=== PATIENT | female | born 1965 | race Caucasian/White ===

== ENCOUNTER 2016-11-08 20:53 | Emergency (ER) | payer MEDICARE, MEDICAID ==
--- NOTE | 2016-11-08 21:35 | ED.PDOC ---
History of Present Illness - General Chief Complaint: Lower Extremity Injury Time Seen by Provider: 11/08/16 21:34 Source: patient - History of Present Illness Initial Comments: Ms Tanvi Stevens 51 y/o female with history of 3 knee surgeries ,dm,cad,sz stated [place] the [place] step [place] done fishing she twisted her left knee and ankle landing on the ground denies back and hip pain;no head injuries.Pain on weight bearing and bending left knee and ankle. Occurred: this evening Pain - Lower Extremity: moderate: Left Knee - twisted, Left Ankle - twisted Method of Injury: fell Improving Factors: rest Worsening Factors: movement Allergies/Adverse Reactions: Allergies Diazepam [From Valium] Allergy (Intermediate, Verified 10/06/15 11:39) Flu Virus Vaccine Allergy (Intermediate, Verified 10/06/15 11:39) Levofloxacin [From Levaquin] Allergy (Intermediate, Verified 10/06/15 11:39) Penicillins Allergy (Intermediate, Verified 10/06/15 11:39) Phenobarbital Allergy (Intermediate, Verified 10/06/15 11:39) Pneumococcal Vaccines Allergy (Intermediate, Verified 10/06/15 11:39) Sulfa Antibiotics Allergy (Intermediate, Verified 10/06/15 11:39) Codeine Allergy (Verified 11/08/16 21:14) Home Medications: Ambulatory Orders Nitroglycerin [Nitrostat] 1 ea SL PRN PRN 12/30/14 Phenytoin Sodium Cap [Dilantin Cap] 400 mg PO DAILY 12/30/14 Albuterol Sulfate [Proair Hfa] 2 puff INH Q6H PRN 10/06/15 Aspirin (Buffered) 325 mg [Bufferin 325 mg] 1 ea PO QD 10/06/15 Clindamycin HCl 150 mg PO Q8HRS #15 cap 10/06/15 Estrogens, Conjugated [Premarin] 0.625 mg PO DAILY 10/06/15 Hydrochlorothiazide 25 mg PO DAILY 10/06/15 Lorazepam [Ativan] 0.5 mg PO TID PRN 10/06/15 Tramadol HCl [Ultram] 50 mg PO TID PRN 10/06/15 Review of Systems - Review of Systems Constitutional: States: no symptoms reported EENTM: States: no symptoms reported Respiratory: States: no symptoms reported Cardiology: States: no symptoms reported Gastrointestinal/Abdominal: States: no symptoms reported Genitourinary: States: no symptoms reported Musculoskeletal: States: see HPI Skin: States: no symptoms reported Neurological: States: no symptoms reported Endocrine: States: no symptoms reported Hematologic/Lymphatic: States: no symptoms reported Past Medical History (General) - Patient Medical History Hx Seizures: Yes Hx Stroke: No Hx Dementia: No Hx Asthma: Yes Hx of COPD: No Hx Cardiac Disorders: Yes - [place] Hx Congestive Heart Failure: No Hx Pacemaker: No Hx Hypertension: Yes Hx Thyroid Disease: No Hx Diabetes: Yes Hx Gastroesophageal Reflux: No Hx Renal Disease: No Hx Cancer: No Hx of HIV: No Hx Hepatitis C: No Hx MRSA: No Hx Other PMH: Yes - seizure Surgical History: angioplasty, appendectomy, cholecystectomy, other - hysterectomy, ,3 left knee surgery,left rotator cuff repair,loop recorder placement - Vaccination History Hx Tetanus, Diphtheria Vaccination: No Hx Influenza Vaccination: No Hx Pneumococcal Vaccination: No Immunizations Up to Date: Yes - Social History Hx Tobacco Use: Yes Hx Chewing Tobacco Use: No Hx Alcohol Use: No Hx Substance Use: No Hx Substance Use Treatment: No Hx Depression: No Hx Physical Abuse: No Hx Emotional Abuse: No Hx Suspected Abuse: No - Activities of Daily Living Patient Lives Alone: No - family Hospice Agency (if applicable):: None Grooming Ability: Independent Eating (Feeding) Ability: Independent Toileting Ability: Independent - Female History Patient is a Female of Child Bearing Age (10 -59 yrs old): Yes - hysterectomy Patient : No Family Medical History - Family History Mother Family History: Unknown Hx Family Stroke: Yes - dad Hx Cardiac Disease: Yes - parents;SZ-dad Hx Family Cancer: Yes - kidney-dad Hx Family;Other: gallstone Physical Exam - Physical Exam General Appearance: Alert, No apparent distress Eyes, Ears, Nose, Throat: PERRL/EOMI, normal ENT inspection, TMs normal Neck: non-tender, full range of motion, supple Cardiovascular/Respiratory: regular rate, rhythm, normal peripheral pulses, no JVD, normal breath sounds Gastrointestinal/Abdominal: non-tender, no organomegaly Back: normal inspection, no CVA tenderness, no vertebral tenderness Thigh/Hip: normal inspection, no evidence of injury Leg: normal inspection, no evidence of injury Knee: bone tenderness, limited ROM - left knee, pain - left knee, soft tissue tenderness - left knee Ankle: limited ROM - pain left, soft tissue tenderness - left ankle Neuro/Tendon: normal sensation, normal motor functions, normal tendon functions , responds to pain, no evidence tendon injury Mental Status: alert, oriented x 3 Skin: normal color, warm/dry Progress - EKG/XRAY/CT XRAY: ankle - no fracture,left ankle ? avulsion fx CT Ordered: No Departure - Departure Clinical Impression: Sprain of left knee Qualifiers: Encounter type: initial encounter Involved ligament of knee: unspecified ligament Qualifier Code: (S83.92XA) Sprain of unspecified site of left knee, initial encounter Sprain of ankle, left Qualifiers: Encounter type: initial encounter Involved ligament of ankle: other ligament Qualifier Code: (S93.492A) Sprain of other ligament of left ankle, initial encounter Time of Disposition: 22:21 Disposition: Discharge to Home or Self Care Departure Forms: ED Discharge - Pt. Copy, Patient Portal Self Enrollment Instructions: DI for Knee Sprain, How to Use an Elastic Bandage-Knee Sprain, DI for Ankle Sprain Home Medications: Ambulatory Orders Nitroglycerin [Nitrostat] 1 ea SL PRN PRN 12/30/14 Phenytoin Sodium Cap [Dilantin Cap] 400 mg PO DAILY 12/30/14 Albuterol Sulfate [Proair Hfa] 2 puff INH Q6H PRN 10/06/15 Aspirin (Buffered) 325 mg [Bufferin 325 mg] 1 ea PO QD 10/06/15 Clindamycin HCl 150 mg PO Q8HRS #15 cap 10/06/15 Estrogens, Conjugated [Premarin] 0.625 mg PO DAILY 10/06/15 Hydrochlorothiazide 25 mg PO DAILY 10/06/15 Lorazepam [Ativan] 0.5 mg PO TID PRN 10/06/15 Tramadol HCl [Ultram] 50 mg PO TID PRN 10/06/15 Additional Instructions: Ice pack to affected area 20 minutes 3 x a day during waking hours until better; Follow up with primary md in one week call for appointment if needed;Continue with home meds
[2016-11-08] MEDS ORDERED: KETOROLAC TROMETHAMINE INJ 30 MG/ML VIAL IM ONE (21:58)
[2016-11-08] MEDS ORDERED: ORPHENADRINE CITRATE 30 MG/ML AMP IM ONE (21:59)
--- NOTE | 2016-11-08 22:12 | RAD ---
EXAM DESCRIPTION: Ankle,Left 3 Views (accession [id number]), Foot,Left 3 Views (accession [id number]), Knee,Left 2 or More Views (accession [id number]) CLINICAL HISTORY: 51 years, Female, fall COMPARISON: LEFT knee radiographs dated 09/20/2012. FINDINGS: Three views of the LEFT foot, three separate views of the LEFT ankle and three separate views of the LEFT knee were performed. LEFT knee: A total knee arthroplasty in stable position. The joint spaces are well-preserved. The bones are osteopenic. No fracture is identified. Redemonstrated attenuating material along the posterior aspect of the LEFT knee, unchanged. No definite knee effusion. LEFT ankle and LEFT foot: Soft tissue swelling involves the lateral aspect of the ankle. No radiopaque foreign body. The bones are osteopenic. A tiny ossification versus calcification lies just distal to the tip of the LEFT lateral malleolus only seen on the mortise view/frontal radiograph. No fracture line or donor site is identified. Bony alignment is maintained. In particular, the ankle mortise is congruent and the talar dome is intact. IMPRESSION: LEFT lateral ankle sprain. A tiny avulsion fracture from the lateral malleolus cannot be excluded but this could also be a chronic finding or calcification. No LEFT foot acute bony injury. No LEFT knee acute bony injury. Stable LEFT knee arthroplasty. Electronically signed by: Any Marques MD 11/08/2016 10:12 PM CDT
--- NOTE | 2016-11-08 22:12 | RAD ---
EXAM DESCRIPTION: Ankle,Left 3 Views (accession [id number]), Foot,Left 3 Views (accession [id number]), Knee,Left 2 or More Views (accession [id number]) CLINICAL HISTORY: 51 years, Female, fall COMPARISON: LEFT knee radiographs dated 09/20/2012. FINDINGS: Three views of the LEFT foot, three separate views of the LEFT ankle and three separate views of the LEFT knee were performed. LEFT knee: A total knee arthroplasty in stable position. The joint spaces are well-preserved. The bones are osteopenic. No fracture is identified. Redemonstrated attenuating material along the posterior aspect of the LEFT knee, unchanged. No definite knee effusion. LEFT ankle and LEFT foot: Soft tissue swelling involves the lateral aspect of the ankle. No radiopaque foreign body. The bones are osteopenic. A tiny ossification versus calcification lies just distal to the tip of the LEFT lateral malleolus only seen on the mortise view/frontal radiograph. No fracture line or donor site is identified. Bony alignment is maintained. In particular, the ankle mortise is congruent and the talar dome is intact. IMPRESSION: LEFT lateral ankle sprain. A tiny avulsion fracture from the lateral malleolus cannot be excluded but this could also be a chronic finding or calcification. No LEFT foot acute bony injury. No LEFT knee acute bony injury. Stable LEFT knee arthroplasty. Electronically signed by: Any Marques MD 11/08/2016 10:12 PM CDT
--- NOTE | 2016-11-08 22:13 | RAD ---
EXAM DESCRIPTION: Ankle,Left 3 Views (accession [id number]), Foot,Left 3 Views (accession [id number]), Knee,Left 2 or More Views (accession [id number]) CLINICAL HISTORY: 51 years, Female, fall COMPARISON: LEFT knee radiographs dated 09/20/2012. FINDINGS: Three views of the LEFT foot, three separate views of the LEFT ankle and three separate views of the LEFT knee were performed. LEFT knee: A total knee arthroplasty in stable position. The joint spaces are well-preserved. The bones are osteopenic. No fracture is identified. Redemonstrated attenuating material along the posterior aspect of the LEFT knee, unchanged. No definite knee effusion. LEFT ankle and LEFT foot: Soft tissue swelling involves the lateral aspect of the ankle. No radiopaque foreign body. The bones are osteopenic. A tiny ossification versus calcification lies just distal to the tip of the LEFT lateral malleolus only seen on the mortise view/frontal radiograph. No fracture line or donor site is identified. Bony alignment is maintained. In particular, the ankle mortise is congruent and the talar dome is intact. IMPRESSION: LEFT lateral ankle sprain. A tiny avulsion fracture from the lateral malleolus cannot be excluded but this could also be a chronic finding or calcification. No LEFT foot acute bony injury. No LEFT knee acute bony injury. Stable LEFT knee arthroplasty. Electronically signed by: Any Marques MD 11/08/2016 10:12 PM CDT
[2016-11-08 22:40] VITALS: BP 125/80; TEMP 97.2; O2SAT 98
== END 2016-11-08 22:40 | disposition home or self-care (01) ==
LOC: ER 20:53
DX: S83.92XA Sprain of unspecified site of left knee, initial encounter (principal); S93.492A Sprain of other ligament of left ankle, initial encounter; E11.9 Type 2 diabetes mellitus without complications; I25.10 Atherosclerotic heart disease of native coronary artery without angina pectoris; I25.2 Old myocardial infarction; J45.909 Unspecified asthma, uncomplicated; Z87.891 Personal history of nicotine dependence; Z98.61 Coronary angioplasty status; Z88.0 Allergy status to penicillin; Z88.2 Allergy status to sulfonamides; Z88.6 Allergy status to analgesic agent; Z88.5 Allergy status to narcotic agent; Z79.82 Long term (current) use of aspirin; Z79.899 Other long term (current) drug therapy; Z88.7 Allergy status to serum and vaccine; X50.1XXA Overexertion from prolonged static or awkward postures, initial encounter; Y92.89 Other specified places as the place of occurrence of the external cause
CPT/HCPCS: 73560; 73610; 73630; J1885; J2360

== ENCOUNTER → 2017-01-01 | Outpatient (CLI) | payer MEDICARE, MEDICAID ==
--- NOTE | 2017-01-03 13:29 | RAD ---
EXAM DESCRIPTION: Knee,Right Complete CLINICAL HISTORY: 51 years,Female,PAIN IN RIGHT KNEE COMPARISON: None FINDINGS: The right knee demonstrates no fractures, dislocations, or other acute bony abnormalities. The joint spaces minimal loss in the lateral facet of the patellofemoral compartment. The soft tissues are unremarkable. No joint effusion. IMPRESSION: Mild right patellofemoral osteoarthritic changes Electronically signed by: Bc Canales MD 01/03/2017 1:30 PM CDT
--- NOTE | 2017-01-03 13:30 | RAD ---
EXAM DESCRIPTION: Pelvis CLINICAL HISTORY: 51 years, Female, PAIN IN RIGHT HIP COMPARISON: None. FINDINGS: Post demonstrates no fractures or other acute abnormalities. Joint spaces appear unremarkable. IMPRESSION: Unremarkable pelvis Electronically signed by: Bc Canales MD 01/03/2017 1:31 PM CDT
== END | disposition home or self-care (01) ==
LOC: RAD 07:59
PROVIDERS: ATTEND Orthopaedic Surgery
DX: M25.561 Pain in right knee (principal); M25.551 Pain in right hip

== ENCOUNTER → 2017-09-10 | Outpatient (CLI) | payer MEDICARE, MEDICAID ==
--- NOTE | 2017-09-12 11:35 | RAD ---
Frontal, lateral, and oblique views of the left hand. Indication:PAIN Comparison: None. Impression: No acute fracture, malalignment, advanced joint space narrowing, osseous erosions, or periarticular osteopenia identified. Fixed flexion of the fourth DIP joint noted. If there is persistent anatomic snuffbox tenderness, repeat wrist imaging to include a scaphoid view is recommended in one week to evaluate for occult scaphoid fracture. Soft tissues are intact without radiopaque foreign body. Electronically signed by: Dominic Jain MD 09/12/2017 11:34 AM [facility]
== END ==
LOC: RAD 08:08
PROVIDERS: ATTEND Orthopaedic Surgery
DX: M79.642 Pain in left hand (principal)

== ENCOUNTER → 2018-05-14 | Outpatient (CLI) | payer MEDICARE, MEDICAID ==
--- NOTE | 2018-05-14 11:19 | RAD ---
EXAM DESCRIPTION: Hand,Left 3 Views CLINICAL HISTORY: PAIN IN LEFT HAND COMPARISON: Radiographs of the left hand dated 09/10/2017. TECHNIQUE: AP, LATERAL, AND OBLIQUE FINDINGS: The visualized bones appear well mineralized. No acute fracture or dislocation. The soft tissues appear grossly unremarkable. IMPRESSION: No gross abnormality is noted in the left hand. Electronically signed by: Kelly Espinosa MD 05/14/2018 11:17 AM CDT
--- NOTE | 2018-05-14 11:19 | RAD ---
EXAM DESCRIPTION: Wrist,Right 3 Views CLINICAL HISTORY: 53 years Female, PAIN IN RIGHT WRIST COMPARISON: None available. FINDINGS: The visualized bones are well-mineralized.No acute fracture or dislocation. The soft tissues appear grossly unremarkable. IMPRESSION: No gross abnormality is noted in the right wrist. Electronically signed by: Kelly Espinosa MD 05/14/2018 11:18 AM CDT
== END ==
LOC: RAD 07:20
PROVIDERS: ATTEND Orthopaedic Surgery
DX: M25.531 Pain in right wrist (principal); M79.642 Pain in left hand; M79.645 Pain in left finger(s)

== ENCOUNTER 2018-07-17 15:50 | Emergency (ER) | payer MEDICARE, MEDICAID ==
[2018-07-17 16:15] VITALS: TEMP 97.5
[2018-07-17] MEDS ORDERED: ONDANSETRON ODT 8 MG TAB SL ONE (16:34)
[2018-07-17] MEDS ORDERED: SUCRALFATE 1 GM/10 ML 1 GM UD PO ONE (17:04)
--- NOTE | 2018-07-17 17:06 | ED.PDOC ---
History of Present Illness - General Chief Complaint: Neuro Symptoms/Deficits Stated Complaint: Post ictal after grand mal seizure Time Seen by Provider: 07/17/18 15:53 Source: patient Exam Limitations: no limitations - History of Present Illness Initial Comments: the patient is a 53-year-old female presenting to the emergency room secondary to having had a grand mal seizure at home. The patient has been having some gastritis issues over the last 3 or 4 days along with symptoms of an upper respiratory tract infection and has had difficulty keeping her seizure medications down. no abdominal pain. She arrives in a postictal state. Postictal state resolved over the ensuing hour. Additional stressors are that the patient just lost 2 family members today both of which relatively close to each other. Severity: moderate Improving Factors: nothing Worsening Factors: nothing Associated Symptoms: malaise, nausea/vomiting Allergies/Adverse Reactions: Allergies Diazepam [From Valium] Allergy (Intermediate, Verified 07/17/18 18:47) Other "stops her heart" Flu Virus Vaccine Allergy (Intermediate, Verified 10/06/15 11:39) Levofloxacin [From Levaquin] Allergy (Intermediate, Verified 07/17/18 18:47) Rash Penicillins Allergy (Intermediate, Verified 10/06/15 11:39) Phenobarbital Allergy (Intermediate, Verified 07/17/18 18:47) Other "stops her heart" Pneumococcal Vaccines Allergy (Intermediate, Verified 10/06/15 11:39) Sulfa Antibiotics Allergy (Intermediate, Verified 07/17/18 18:47) Rash Beclomethasone [From Qvar] Allergy (Verified 07/17/18 18:47) Rash Codeine Allergy (Verified 07/17/18 18:47) Rash Venlafaxine [From Effexor] Adverse Reaction (Verified 07/17/18 18:47) Nausea Home Medications: Ambulatory Orders Nitroglycerin [Nitrostat] 1 ea SL PRN PRN 12/30/14 Phenytoin Sodium Cap Extended [Dilantin Cap] 200 mg PO BID 12/30/14 Albuterol Sulfate [Proair Hfa] 2 puff INH Q6H PRN 10/06/15 Aspirin (Buffered) 325 mg [Bufferin 325 mg] 1 ea PO QD 10/06/15 Estrogens, Conjugated [Premarin] 0.625 mg PO DAILY 10/06/15 Hydrochlorothiazide 25 mg PO DAILY 10/06/15 Lorazepam [Ativan] 0.5 mg PO TID PRN 10/06/15 Tramadol HCl [Ultram] 50 mg PO TID PRN 10/06/15 Famotidine [Pepcid Tab] 20 mg PO BID #60 tab 07/17/18 Furosemide 20 mg PO DAILY 07/17/18 Ondansetron [Zofran Odt] 4 mg PO Q4H PRN #10 tab 07/17/18 Sucralfate Tab [Carafate Tab] 1 gm PO QID #30 tab 07/17/18 Review of Systems - Review of Systems Constitutional: States: malaise EENTM: States: no symptoms reported Respiratory: States: no symptoms reported Cardiology: States: no symptoms reported Gastrointestinal/Abdominal: States: nausea, vomiting Genitourinary: States: no symptoms reported Musculoskeletal: States: no symptoms reported Skin: States: no symptoms reported Neurological: States: no symptoms reported Endocrine: States: no symptoms reported All other Systems: No Change from Baseline Past Medical History (General) - Patient Medical History Hx Seizures: Yes Hx Stroke: No Hx Dementia: No Hx Asthma: Yes Hx of COPD: No Hx Cardiac Disorders: Yes - [place] Hx Congestive Heart Failure: No Hx Pacemaker: No Hx Hypertension: Yes Hx Thyroid Disease: No Hx Diabetes: No Hx Gastroesophageal Reflux: No Hx Renal Disease: No Hx Cancer: No Hx of HIV: No Hx Hepatitis C: No Hx MRSA: No - Vaccination History Hx Tetanus, Diphtheria Vaccination: No Hx Influenza Vaccination: - unknown Hx Pneumococcal Vaccination: - unknown - Social History Hx Tobacco Use: Yes Hx Chewing Tobacco Use: No Hx Alcohol Use: No Hx Substance Use: No Hx Substance Use Treatment: No Hx Depression: No Hx Physical Abuse: No Hx Emotional Abuse: No Hx Suspected Abuse: No - Female History Patient : No Family Medical History - Family History Mother Family History: Unknown Hx Family Stroke: Yes - dad Hx Cardiac Disease: Yes - parents;SZ-dad Hx Family Cancer: Yes - kidney-dad Hx Family;Other: gallstone Physical Exam - Physical Exam General Appearance: Other - after the postictal state resolved, the patient is alert and oriented, pleasant and cooperative. Eye Exam: bilateral normal Ears, Nose, Throat: hearing grossly normal, normal ENT inspection, normal pharynx - poor dentition Neck: full range of motion, supple Respiratory: lungs clear, normal breath sounds, no respiratory distress, no accessory muscle use Cardiovascular/Chest: normal peripheral pulses, regular rate, rhythm, no edema Peripheral Pulses: radial,right: 2+, radial,left: 2+ Gastrointestinal/Abdominal: non tender, soft, other - mild epigastric discomfort palpation. Rectal Exam: deferred Back Exam: no CVA tenderness, no vertebral tenderness Extremity: normal range of motion, non-tender, normal inspection, no pedal edema, normal capillary refill Neurologic: other - after the postictal state resolves the patient is alert and oriented 4. No new sensory or motor deficits. No new neurological changes otherwise. Skin Exam: normal color Comments: Vital Signs - 24 hr 07/17/18 15:50 Temperature 97.5 F L Pulse Rate [ 91 H Left Radial] Respiratory 14 Rate Blood Pressure 124/89 [Right Arm] O2 Sat by Pulse 96 Oximetry Progress - Progress Progress: 07/17/18 23:32 the patient's a 53-year-old female presenting to the emergency room secondary to a grand mal seizure due to having difficulties holding down her Dilantin over the past few days. The patient appears to be suffering from a viral syndrome including gastroenteritis and a very mild bronchitis. The patient is a very difficult IV access but does appear to be fairly well hydrated. The patient received loading doses of IM Dilantin and was eventually able to hold down her oral Dilantin after nausea medications and stomach medications were given here. The patient will be written for Carafate for 3 times a day use for the next week. She needs to try and not take her Dilantin at the same time she takes the Carafate. She will additionally be written for Zofran for as needed use to control any nausea and vomiting to allow herself to remain hydrated and hold down her seizure medications. Additionally she does need to take Pepcid twice daily for the next month. She needs to follow up with her primary care doctor early next week. ER warnings were given. Encourage oral hydration. [place] diet is also encouraged. - Results/Orders Results/Orders: Laboratory Tests 07/17/18 07/17/18 16:24 16:24 WBC 9.3 RBC 4.84 Hgb 14.8 Hct 43.6 MCV 90.1 MCH 30.6 MCHC 34.0 RDW 13.7 Plt Count 211 MPV 8.3 Absolute Neuts (auto) 5.10 Absolute Lymphs (auto) 3.20 Absolute Monos (auto) 0.70 Absolute Eos (auto) 0.20 Absolute Basos (auto) 0.10 Neutrophils % 55.1 Lymphocytes % 34.3 Monocytes % 7.5 Eosinophils % 1.9 Basophils % 1.2 Sodium 137 Potassium 3.7 Chloride 107 Carbon Dioxide 24 Anion Gap 9.7 L BUN 16 Creatinine 0.62 BUN/Creatinine Ratio 25.8 H Random Glucose 98 Serum Osmolality 275.0 Calcium 9.5 Magnesium 2.0 Total Bilirubin 0.3 AST 21 ALT 20 Alkaline Phosphatase 122 H Creatine Kinase 51 CK-MB (CK-2) 1.5 CK-MB (CK-2) % Not Reportable Troponin I < 0.02 B-Natriuretic Peptide < 5.0 Serum Total Protein 7.3 Albumin 3.9 Globulin 3.4 Albumin/Globulin Ratio 1.1 TSH 3.34 Phenytoin < 0.5 L acute abdominal series shows no acute pathology. Departure - Departure Clinical Impression: Viral syndrome Epilepsy Qualifiers: Epilepsy type: other generalized Intractability: not intractable Status epilepticus: without status epilepticus Qualified Code(s): G40.409 - Other generalized epilepsy and epileptic syndromes, not intractable, without status epilepticus Disposition: Discharge to Home or Self Care Condition: Fair Departure Forms: ED Discharge - Pt. Copy, Patient Portal Self Enrollment Instructions: Seizures, Adult (DC), Viral Syndrome (DC), Viral Gastroenteritis, Adult (DC) Diet: bland diet, diabetic diet Activity: increase activity as tolerated Prescriptions: Famotidine [Pepcid Tab] 20 mg PO BID #60 tab Ondansetron [Zofran Odt] 4 mg PO Q4H PRN #10 tab PRN Reason: Vomiting Sucralfate Tab [Carafate Tab] 1 gm PO QID #30 tab Home Medications: Ambulatory Orders Nitroglycerin [Nitrostat] 1 ea SL PRN PRN 12/30/14 Phenytoin Sodium Cap Extended [Dilantin Cap] 200 mg PO BID 12/30/14 Albuterol Sulfate [Proair Hfa] 2 puff INH Q6H PRN 10/06/15 Aspirin (Buffered) 325 mg [Bufferin 325 mg] 1 ea PO QD 10/06/15 Estrogens, Conjugated [Premarin] 0.625 mg PO DAILY 10/06/15 Hydrochlorothiazide 25 mg PO DAILY 10/06/15 Lorazepam [Ativan] 0.5 mg PO TID PRN 10/06/15 Tramadol HCl [Ultram] 50 mg PO TID PRN 10/06/15 Famotidine [Pepcid Tab] 20 mg PO BID #60 tab 07/17/18 Furosemide 20 mg PO DAILY 07/17/18 Ondansetron [Zofran Odt] 4 mg PO Q4H PRN #10 tab 07/17/18 Sucralfate Tab [Carafate Tab] 1 gm PO QID #30 tab 07/17/18 Additional Instructions: the patient's a 53-year-old female presenting to the emergency room secondary to a grand mal seizure due to having difficulties holding down her Dilantin over the past few days. The patient appears to be suffering from a viral syndrome including gastroenteritis and a very mild bronchitis. The patient is a very difficult IV access but does appear to be fairly well hydrated. The patient received loading doses of IM Dilantin and was eventually able to hold down her oral Dilantin after nausea medications and stomach medications were given here. The patient will be written for Carafate for 3 times a day use for the next week. She needs to try and not take her Dilantin at the same time she takes the Carafate. She will additionally be written for Zofran for as needed use to control any nausea and vomiting to allow herself to remain hydrated and hold down her seizure medications. Additionally she does need to take Pepcid twice daily for the next month. She needs to follow up with her primary care doctor early next week. ER warnings were given. Encourage oral hydration. [place] diet is also encouraged.
[2018-07-17] MEDS ORDERED: SODIUM CHLORIDE 0.9% 1000ML 1,000 ML IVS ONE (17:08)
[2018-07-17] MEDS ORDERED: PHENYTOIN SODIUM INJ 1,000 MG in SODIUM CHLORIDE 0.9% 100ML 100 ML IVPB ONE (17:08)
[2018-07-17] MEDS ORDERED: PANTOPRAZOLE SODIUM IV 40 MG VIAL IV ONE (17:10)
[2018-07-17] MEDS ORDERED: PROMETHAZINE HCL INJ 25 MG/ML VIAL IM ONE (18:02)
--- NOTE | 2018-07-17 18:38 | RAD ---
EXAM DESCRIPTION: Abdomen Series CLINICAL HISTORY: 53 years, Female, nv 4d COMPARISON: None. FINDINGS: The lungs are clear. There are no pleural abnormalities. The cardiac silhouette is normal in size. Loop recorder is projected over the lower chest. Nonobstructive bowel gas pattern. No abnormal calcifications. No acute osseous abnormality. Patient has had a cholecystectomy. IMPRESSION: No acute abnormality. Electronically signed by: Lalit Bueno DO 07/17/2018 6:37 PM [employer]
[2018-07-17] MEDS ORDERED: PHENYTOIN SODIUM INJ 100 MG/2 ML VIAL IM ONE (19:03)
[2018-07-17 19:34] VITALS: O2SAT 97
[2018-07-17] MEDS ORDERED: IPRATROPIUM/ALBUTEROL 3 ML VIAL NEB ONE (23:13)
[2018-07-17] MEDS ORDERED: ONDANSETRON ODT (ER DISP) 8 MG TAB PO ONE (23:42)
[2018-07-17 23:45] VITALS: BP 111/67
== END 2018-07-17 23:56 | disposition home or self-care (01) ==
LOC: ER 15:50
DX: G40.409 Other generalized epilepsy and epileptic syndromes, not intractable, without status epilepticus (principal); B34.9 Viral infection, unspecified; J45.909 Unspecified asthma, uncomplicated; I25.2 Old myocardial infarction; I10 Essential (primary) hypertension; Z79.899 Other long term (current) drug therapy; Z88.2 Allergy status to sulfonamides; Z88.5 Allergy status to narcotic agent; Z88.8 Allergy status to other drugs, medicaments and biological substances; Z88.7 Allergy status to serum and vaccine; Z88.0 Allergy status to penicillin; Z87.891 Personal history of nicotine dependence
CPT/HCPCS: 36415; 74019; 80053; 80185; 82550; 82553; 82948; 83735; 83880; 84443; 84484; 85025; J2060; J2550; J7620

== ENCOUNTER → 2019-02-11 | Outpatient (CLI) | payer OTHER, MEDICAID ==
--- NOTE | 2019-02-11 08:44 | RAD ---
EXAM DESCRIPTION: Hand,Left 3 Views CLINICAL HISTORY: M79.642 COMPARISON: None Available. TECHNIQUE: AP, LATERAL, AND OBLIQUE FINDINGS: The visualized bones appear well mineralized. No acute fracture or dislocation. The soft tissues appear grossly unremarkable. Minimal degenerative changes are identified in the first carpometacarpal joint. IMPRESSION: Minimal degenerative changes are identified in the first carpometacarpal joint of the left hand. Electronically signed by: Kelly Espinosa MD 02/11/2019 8:42 AM CDT
== END ==
LOC: RAD 07:45
PROVIDERS: ATTEND Orthopaedic Surgery
DX: M18.52 Other unilateral secondary osteoarthritis of first carpometacarpal joint, left hand (principal)

== ENCOUNTER 2019-04-08 07:47 | Emergency (ER) | payer MEDICARE, MEDICAID ==
[2019-04-08] MEDS ORDERED: IBUPROFEN 200 MG TAB PO ONE (08:11)
--- NOTE | 2019-04-08 08:14 | ED.PDOC ---
History of Present Illness - General Chief Complaint: General Stated Complaint: R wrist swelling, discomfort Time Seen by Provider: 04/08/19 08:07 - History of Present Illness Initial Comments: Patient presents c/o R wrist pain. Says that she fell 2 weeks ago and since then has been having pain. 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 Pain is 6/10, achy in nature, worse with movement. Denies any swelling or redness. Allergies/Adverse Reactions: Allergies Diazepam [From Valium] Allergy (Intermediate, Verified 07/17/18 18:47) Other "stops her heart" Flu Virus Vaccine Allergy (Intermediate, Verified 10/06/15 11:39) Levofloxacin [From Levaquin] Allergy (Intermediate, Verified 07/17/18 18:47) Rash Penicillins Allergy (Intermediate, Verified 04/08/19 08:02) Other Causes itching Phenobarbital Allergy (Intermediate, Verified 07/17/18 18:47) Other "stops her heart" Pneumococcal Vaccines Allergy (Intermediate, Verified 10/06/15 11:39) Sulfa Antibiotics Allergy (Intermediate, Verified 07/17/18 18:47) Rash Beclomethasone [From Qvar] Allergy (Verified 07/17/18 18:47) Rash Codeine Allergy (Verified 07/17/18 18:47) Rash Venlafaxine [From Effexor] Adverse Reaction (Verified 07/17/18 18:47) Nausea Home Medications: Ambulatory Orders Nitroglycerin [Nitrostat] 1 ea SL PRN PRN 12/30/14 Furosemide 20 mg PO DAILY 07/17/18 Review of Systems - Review of Systems Constitutional: States: no symptoms reported EENTM: States: no symptoms reported Respiratory: States: no symptoms reported Cardiology: States: no symptoms reported Gastrointestinal/Abdominal: States: no symptoms reported Genitourinary: States: no symptoms reported Musculoskeletal: States: joint pain, muscle stiffness Skin: States: no symptoms reported Neurological: States: no symptoms reported Endocrine: States: no symptoms reported Hematologic/Lymphatic: States: no symptoms reported All other Systems: Reviewed and Negative Past Medical History (General) - Patient Medical History Hx Seizures: Yes Hx Stroke: No Hx Dementia: No Hx Asthma: Yes Hx of COPD: No Hx Cardiac Disorders: Yes - Hx ID x 2 Hx Congestive Heart Failure: Yes Hx Pacemaker: No Hx Hypertension: Yes Hx Thyroid Disease: No Hx Diabetes: No Hx Gastroesophageal Reflux: No Hx Renal Disease: No Hx Cancer: No Hx of HIV: No Hx Hepatitis C: No Hx MRSA: No Surgical History: cholecystectomy, Hysterectomy, other - Vaccination History Hx Tetanus, Diphtheria Vaccination: No Hx Influenza Vaccination: No Hx Pneumococcal Vaccination: No - Social History Hx Tobacco Use: Yes Hx Chewing Tobacco Use: No Hx Alcohol Use: No Hx Substance Use: No Hx Substance Use Treatment: No Hx Depression: No Hx Physical Abuse: No Hx Emotional Abuse: No Hx Suspected Abuse: No - Female History Patient : No Family Medical History - Family History Mother Family History: Unknown Hx Family Stroke: Yes - dad Hx Cardiac Disease: Yes - parents;SZ-dad Hx Family Cancer: Yes - kidney-dad Hx Family;Other: gallstone Physical Exam - Physical Exam General Appearance: Comfortable, No apparent distress Ears, Nose, Throat: hearing grossly normal Neck: non-tender, supple Respiratory: chest non-tender, normal breath sounds Cardiovascular/Chest: normal peripheral pulses, no edema Peripheral Pulses: radial,right: 2+, radial,left: 2+ Gastrointestinal/Abdominal: non tender, soft Rectal Exam: deferred Back Exam: normal inspection Extremity: other - slight pain with ROM of R wrist with no sig tenderness over snuff box. No sig swelling or deformity Neurologic: alert, oriented x 3 Skin Exam: normal color, warm/dry Progress - Progress Progress: 04/08/19 08:47 XR negative for fracture. Although she does have some slight snuffbox tenderness, given that injury occurred 2 weeks prior I do not suspect a scaphoid injury. Will place patient in butch wrap, pcp f/u. 04/08/19 08:51 Departure - Departure Clinical Impression: Right wrist sprain Qualifiers: Encounter type: initial encounter Qualified Code(s): S63.501A - Unspecified sprain of right wrist, initial encounter Time of Disposition: 08:49 Disposition: Discharge to Home or Self Care Condition: Excellent Departure Forms: ED Discharge - Pt. Copy, Patient Portal Self Enrollment Instructions: Wrist Sprain (DC) Home Medications: Ambulatory Orders Nitroglycerin [Nitrostat] 1 ea SL PRN PRN 12/30/14 Furosemide 20 mg PO DAILY 07/17/18 Additional Instructions: Please follow up with your PCP. Apply ice to wrist, treat with motrin/tylenol as needed for pain.
--- NOTE | 2019-04-08 08:41 | RAD ---
EXAM DESCRIPTION: Wrist,Right 3 Views: CR/DR/XR CLINICAL HISTORY: 54 years Female pain COMPARISON: Normal bone density. TECHNIQUE: 3 VIEWS AP. Lateral. Oblique. Right wrist. FINDINGS: Normal bone density. No fracture or dislocation. No abnormal radiodense objects in the soft tissues or joint spaces. IMPRESSION: No acute bony or joint margin abnormality right wrist. Electronically signed by: Juan Luis Chambers MD 04/08/2019 8:39 AM CDT
[2019-04-08 09:03] VITALS: BP 124/65; TEMP 96.1; O2SAT 98
== END 2019-04-08 09:00 | disposition home or self-care (01) ==
LOC: ER 07:47
DX: S63.501A Unspecified sprain of right wrist, initial encounter (principal); R56.9 Unspecified convulsions; J45.909 Unspecified asthma, uncomplicated; I25.2 Old myocardial infarction; I50.9 Heart failure, unspecified; I11.0 Hypertensive heart disease with heart failure; Z88.8 Allergy status to other drugs, medicaments and biological substances; Z87.891 Personal history of nicotine dependence; Z88.7 Allergy status to serum and vaccine; Z88.1 Allergy status to other antibiotic agents; Z88.0 Allergy status to penicillin; Z88.2 Allergy status to sulfonamides; Z88.5 Allergy status to narcotic agent; W19.XXXA Unspecified fall, initial encounter; Y92.9 Unspecified place or not applicable

== ENCOUNTER → 2019-04-26 | Outpatient (CLI) | payer MEDICARE, MEDICAID ==
--- NOTE | 2019-04-27 10:57 | RAD ---
EXAM DESCRIPTION: Wrist,Right 3 Views CLINICAL HISTORY: 54 years Female, PAIN IN RIGHT WRIST COMPARISON: Right wrist radiographs 04/08/2019 TECHNIQUE: 3 views of the right wrist. IMPRESSION: No acute displaced fracture. No dislocation. The carpal and metacarpal bones maintain normal anatomic alignment. Minimal minimal arthrosis about the carpal bones. Neutral ulnar variance. No radiographically apparent soft tissue abnormality. No significant interval change from 04/08/2019. Electronically signed by: Kiran Mayes MD 04/27/2019 10:56 AM CDT
== END ==
LOC: RAD 11:39
PROVIDERS: ATTEND Orthopaedic Surgery
DX: M25.531 Pain in right wrist (principal)

== ENCOUNTER 2020-03-04 17:47 | Emergency (ER) | payer MEDICARE, OTHER ==
--- NOTE | 2020-03-04 17:56 | ED.PDOC ---
History of Present Illness - General Time Seen by Provider: 03/04/20 17:53 Source: patient, Vital Signs reviewed Additional Information: Is a 54-year-old female with recurrent artery disease, hypertension, smoker patient is to the ER because of smashing her finger against a truck. Patient complaining of pain in the second third and fourth digit of the left hand, the trauma happened yesterday she did not look for any medical attention because she decided to go fishing - History of Present Illness Occurred: yesterday Pain - Upper Extremity: mild: Hand, left Method of Injury: other - crushed Improving Factors: nothing Worsening Factors: nothing Allergies/Adverse Reactions: Allergies Diazepam [From Valium] Allergy (Intermediate, Verified 07/17/18 18:47) Other "stops her heart" Levofloxacin [From Levaquin] Allergy (Intermediate, Verified 07/17/18 18:47) Rash Penicillins Allergy (Intermediate, Verified 04/08/19 08:02) Other Causes itching Phenobarbital Allergy (Intermediate, Verified 07/17/18 18:47) Other "stops her heart" Sulfa Antibiotics Allergy (Intermediate, Verified 07/17/18 18:47) Rash Beclomethasone [From Qvar] Allergy (Verified 07/17/18 18:47) Rash Codeine Allergy (Verified 07/17/18 18:47) Rash Venlafaxine [From Effexor] Adverse Reaction (Verified 07/17/18 18:47) Nausea Home Medications: Ambulatory Orders Nitroglycerin [Nitrostat] 1 ea SL PRN PRN 12/30/14 Aspirin [Aspirin Adult Low Dose] 81 mg PO DAILY 03/04/20 Glipizide 5 mg PO DAILY 03/04/20 Ibuprofen [Motrin] 600 mg PO Q6HR #20 tab 03/04/20 Lisinopril & Hydrochlorothiazi [Lisinopril/Hydrochlorothi 10-12.5 mg] 1 tab PO DAILY 03/04/20 Review of Systems - Review of Systems Constitutional: States: no symptoms reported EENTM: States: see HPI Respiratory: States: no symptoms reported Cardiology: States: no symptoms reported Gastrointestinal/Abdominal: States: no symptoms reported Genitourinary: States: no symptoms reported Musculoskeletal: States: no symptoms reported Skin: States: no symptoms reported Neurological: States: no symptoms reported Endocrine: States: no symptoms reported Hematologic/Lymphatic: States: no symptoms reported Past Medical History (General) - Patient Medical History Hx Seizures: Yes Hx Stroke: No Hx Dementia: No Hx Asthma: Yes Hx of COPD: No Hx Cardiac Disorders: Yes - Hx NH x 2 Hx Congestive Heart Failure: Yes Hx Pacemaker: No Hx Hypertension: Yes Hx Thyroid Disease: No Hx Diabetes: No Hx Gastroesophageal Reflux: No Hx Renal Disease: No Hx Cancer: No Hx of HIV: No Hx Hepatitis C: No Hx MRSA: No - Vaccination History Hx Tetanus, Diphtheria Vaccination: No Hx Influenza Vaccination: No Hx Pneumococcal Vaccination: No - Social History Hx Tobacco Use: Yes Hx Chewing Tobacco Use: No Hx Alcohol Use: No Hx Substance Use: No Hx Substance Use Treatment: No Hx Depression: No Hx Physical Abuse: No Hx Emotional Abuse: No Hx Suspected Abuse: No - Female History Patient : No Family Medical History - Family History Mother Family History: Unknown Hx Family Stroke: Yes - dad Hx Cardiac Disease: Yes - parents;SZ-dad Hx Family Cancer: Yes - kidney-dad Hx Family;Other: gallstone Physical Exam - Physical Exam General Appearance: Alert, Well Developed, Well Nourished Eyes, Ears, Nose, Throat Exam: PERRL/EOMI Neck: non-tender, full range of motion, supple Cardiovascular/Respiratory: regular rate, rhythm, no M/R/G, normal peripheral pulses, no JVD, normal breath sounds, no respiratory distress Abdominal Exam: non-tender Back Exam: normal inspection - f Shoulder Exam: normal inspection, normal ROM Hand Exam: nail injury, swelling - Patient swelling noted in patient second third and fourth at the PIP joint, and there is some evidence of no nail avulsion Neuro/Tendon: normal sensation Mental Status: alert, oriented x 3 Skin Exam: normal color Progress - Progress Progress: Patient presents with finger injury after 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 Patient stated that this happened yesterday, I ordered x-rays I noted that there is a tuft fracture noted in patient fourth digit of the left hand, we will put her on a metal splint, and will be discharged home with Tylenol 3 03/04/20 18:08 Departure - Departure Clinical Impression: Finger fracture, left Qualifiers: Encounter type: initial encounter Finger: ring finger Fracture type: closed Phalanx: distal Fracture alignment: nondisplaced Qualified Code(s): S62.665A - Nondisplaced fracture of distal phalanx of left ring finger, initial encounter for closed fracture Disposition: Discharge to Home or Self Care Condition: Fair Instructions: Finger Fracture Prescriptions: Ibuprofen [Motrin] 600 mg PO Q6HR #20 tab Home Medications: Ambulatory Orders Nitroglycerin [Nitrostat] 1 ea SL PRN PRN 12/30/14 Aspirin [Aspirin Adult Low Dose] 81 mg PO DAILY 03/04/20 Glipizide 5 mg PO DAILY 03/04/20 Ibuprofen [Motrin] 600 mg PO Q6HR #20 tab 03/04/20 Lisinopril & Hydrochlorothiazi [Lisinopril/Hydrochlorothi 10-12.5 mg] 1 tab PO DAILY 03/04/20 Additional Instructions: Extremity elevated to help with the swelling
[2020-03-04 18:00] VITALS: BP 137/66; TEMP 97.8; O2SAT 98
--- NOTE | 2020-03-04 18:36 | RAD ---
EXAM DESCRIPTION: Fingers,Right CLINICAL HISTORY: 54 years Female trauma to 3rd and 4th digit COMPARISON: None. TECHNIQUE: Right finger, three views FINDINGS: There is a minimally displaced fracture of the terminal tuft of the fourth digit. Definite fracture of the third digit is not noted. No radiopaque foreign object noted. IMPRESSION: Minimally displaced fracture of the fourth terminal tuft Electronically signed by: Kika Villanueva MD 03/04/2020 6:34 PM CDT
== END 2020-03-04 18:25 | disposition home or self-care (01) ==
LOC: ER 17:47
DX: S62.635A Displaced fracture of distal phalanx of left ring finger, initial encounter for closed fracture (principal); S69.92XA Unspecified injury of left wrist, hand and finger(s), initial encounter; R56.9 Unspecified convulsions; J45.909 Unspecified asthma, uncomplicated; I25.2 Old myocardial infarction; I50.9 Heart failure, unspecified; I11.0 Hypertensive heart disease with heart failure; Z87.891 Personal history of nicotine dependence; Z79.82 Long term (current) use of aspirin; Z79.899 Other long term (current) drug therapy; Z88.8 Allergy status to other drugs, medicaments and biological substances; Z88.5 Allergy status to narcotic agent; Z88.2 Allergy status to sulfonamides; Z88.0 Allergy status to penicillin; Z88.1 Allergy status to other antibiotic agents; W22.09XA Striking against other stationary object, initial encounter; Y92.9 Unspecified place or not applicable

== ENCOUNTER → 2020-03-08 | Outpatient (CLI) | payer MEDICARE | LOC: LAB.O 16:03 | PROVIDERS: ATTEND Family Medicine | DX: E11.9 Type 2 diabetes mellitus without complications (principal) ==

== ENCOUNTER 2020-04-22 16:41 | Emergency (ER) | payer MEDICARE ==
[2020-04-22] MEDS ORDERED: TETANUS,DIPHTHERIA,PERTUSSIS 1 EA SYG IM ONE (17:05)
--- NOTE | 2020-04-22 17:27 | ED.PDOC ---
History of Present Illness - General Chief Complaint: General Stated Complaint: Fish hook in the R arm Time Seen by Provider: 04/22/20 16:42 Source: patient, RN notes reviewed, Vital Signs reviewed - History of Present Illness Initial Comments: 55 yo RHD F with PMH DM, CAD, HTN comes in after she got a fish hook in her right upper arm. unsure when last tetanus is. no other injuries. 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 Timing/Duration: 1/2 hour Allergies/Adverse Reactions: Allergies Diazepam [From Valium] Allergy (Intermediate, Verified 04/22/20 17:23) Other "stops her heart" Levofloxacin [From Levaquin] Allergy (Intermediate, Verified 04/22/20 17:23) Rash Penicillins Allergy (Intermediate, Verified 04/22/20 17:23) Other Causes itching Phenobarbital Allergy (Intermediate, Verified 04/22/20 17:23) Other "stops her heart" Sulfa Antibiotics Allergy (Intermediate, Verified 04/22/20 17:23) Rash Beclomethasone [From Qvar] Allergy (Verified 04/22/20 17:23) Rash Codeine Allergy (Verified 04/22/20 17:23) Rash Venlafaxine [From Effexor] Adverse Reaction (Verified 04/22/20 17:23) Nausea Home Medications: Ambulatory Orders Nitroglycerin [Nitrostat] 1 ea SL PRN PRN 12/30/14 Aspirin [Aspirin Adult Low Dose] 81 mg PO DAILY 03/04/20 Glipizide 5 mg PO DAILY 03/04/20 Ibuprofen [Motrin] 600 mg PO Q6HR #20 tab 03/04/20 Lisinopril & Hydrochlorothiazi [Lisinopril/Hydrochlorothi 10-12.5 mg] 1 tab PO DAILY 03/04/20 Clindamycin HCl 300 mg PO TID #21 cap 04/22/20 Review of Systems - Review of Systems Constitutional: Denies: chills, fever EENTM: Denies: blurred vision, mouth pain Respiratory: Denies: cough, short of breath Cardiology: Denies: chest pain, palpitations, syncope Gastrointestinal/Abdominal: Denies: abdominal pain, nausea, vomiting Musculoskeletal: States: muscle pain Skin: States: see HPI Neurological: Denies: numbness, paresthesia, tremors, weakness Hematologic/Lymphatic: Denies: easy bleeding, easy bruising Past Medical History (General) - Patient Medical History Hx Seizures: Yes Hx Stroke: No Hx Dementia: No Hx Asthma: Yes Hx of COPD: No Hx Cardiac Disorders: Yes - Hx CT x 2 Hx Congestive Heart Failure: Yes Hx Pacemaker: No Hx Hypertension: Yes Hx Thyroid Disease: No Hx Diabetes: No Hx Gastroesophageal Reflux: No Hx Renal Disease: No Hx Cancer: No Hx of HIV: No Hx Hepatitis C: No Hx MRSA: No - Vaccination History Hx Tetanus, Diphtheria Vaccination: No Hx Influenza Vaccination: No Hx Pneumococcal Vaccination: No - Social History Hx Tobacco Use: Yes Hx Chewing Tobacco Use: No Hx Alcohol Use: No Hx Substance Use: No Hx Substance Use Treatment: No Hx Depression: No Hx Physical Abuse: No Hx Emotional Abuse: No Hx Suspected Abuse: No - Female History Patient : No Family Medical History - Family History Mother Family History: Unknown Hx Family Stroke: Yes - dad Hx Cardiac Disease: Yes - parents;SZ-dad Hx Family Cancer: Yes - kidney-dad Hx Family;Other: gallstone Physical Exam - Physical Exam General Appearance: Alert, Comfortable, No apparent distress, Well Developed, We ll Groomed, Well Hydrated, Well Nourished Ears, Nose, Throat: hearing grossly normal, normal ENT inspection Neck: non-tender, supple, normal inspection Respiratory: chest non-tender, lungs clear, no respiratory distress, no accessory muscle use Cardiovascular/Chest: normal peripheral pulses, regular rate, rhythm, no edema Peripheral Pulses: radial,right: 2+, radial,left: 2+ Gastrointestinal/Abdominal: normal bowel sounds, non tender Back Exam: normal inspection Extremity: normal range of motion, normal capillary refill, other - LARGE HOOK in right lateral arm. Neurologic: no motor/sensory deficits, alert, normal mood/affect, oriented x 3 Skin Exam: normal color, other - ecchymosis surronding hook entry. Progress - Progress Progress: 04/22/20 18:11 the area was cleaned with betadine/alcohol, the area was anesthetized with 5 ml of 1% lidocaine. the hook was unable to removed through wound entry site, so the hook was pushed anterior to break through skin. The tip of the hook was cut with pliers, the remaining hook was removed without difficulty. Tdap was updated. patient tolerated well. post wound care instructions given. The data reviewed when caring for this patient included: nurse notes, prior records, etc. The history and assessments from nurses notes were reviewed and considered, and the patient's home medication list was also reviewed and considered. My assessment was discussed with the patient/family. All questions were answered, and they express understanding of my assessment and the plan. They have been instructed to return if their symptoms worsen, and have been asked to follow up with their primary care physician to recheck today's present ing complaint. return precautions given. I have reviewed medication, benefits, alternatives and side effects. Patient decided to proceed with medication.Isabel Ledesma DO #[id number] Procedures - Foreign Body Removal Foreign Body Removal: fish hook Departure - Departure Clinical Impression: Fish hook injury of right upper arm Time of Disposition: 17:21 Disposition: Discharge to Home or Self Care Departure Forms: ED Discharge - Pt. Copy, Patient Portal Self Enrollment Instructions: Foreign Body in Skin (DC) Referrals: SONY CHATTERJEE MD [Primary Care Provider] - 1-5 Days Prescriptions: Clindamycin HCl 300 mg PO TID #21 cap Home Medications: Ambulatory Orders Nitroglycerin [Nitrostat] 1 ea SL PRN PRN 12/30/14 Aspirin [Aspirin Adult Low Dose] 81 mg PO DAILY 03/04/20 Glipizide 5 mg PO DAILY 03/04/20 Ibuprofen [Motrin] 600 mg PO Q6HR #20 tab 03/04/20 Lisinopril & Hydrochlorothiazi [Lisinopril/Hydrochlorothi 10-12.5 mg] 1 tab PO DAILY 03/04/20 Clindamycin HCl 300 mg PO TID #21 cap 04/22/20
[2020-04-22 17:54] VITALS: BP 130/77; TEMP 98; O2SAT 97
== END 2020-04-22 17:50 | disposition home or self-care (01) ==
LOC: ER 16:41
DX: S40.851A Superficial foreign body of right upper arm, initial encounter (principal); I50.9 Heart failure, unspecified; I11.0 Hypertensive heart disease with heart failure; I25.10 Atherosclerotic heart disease of native coronary artery without angina pectoris; R56.9 Unspecified convulsions; J45.909 Unspecified asthma, uncomplicated; I25.2 Old myocardial infarction; W45.8XXA Other foreign body or object entering through skin, initial encounter; Z87.891 Personal history of nicotine dependence; Z79.899 Other long term (current) drug therapy; Z88.8 Allergy status to other drugs, medicaments and biological substances; Z88.1 Allergy status to other antibiotic agents; Z88.0 Allergy status to penicillin; Z88.2 Allergy status to sulfonamides; Z88.5 Allergy status to narcotic agent; Z79.82 Long term (current) use of aspirin

== ENCOUNTER → 2020-07-25 | Outpatient (CLI) | payer MEDICARE | LOC: LAB.O 10:39 | PROVIDERS: ATTEND Family Medicine | DX: Z00.00 Encounter for general adult medical examination without abnormal findings (principal); E11.65 Type 2 diabetes mellitus with hyperglycemia ==